=== PATIENT | female | born 1965 | race Caucasian/White ===

== ENCOUNTER 2018-01-23 10:39 | Emergency (ER) | payer OTHER ==
[~2018-01-23] VITALS: Ht 154.9 cm; Wt 74.8 kg
[2018-01-23] MEDS ORDERED: SYNTHROID100 MC1 PO (11:00)
[2018-01-23] MEDS ORDERED: LIPITOR 20 MG T20 M1 PO (11:00)
[2018-01-23] MEDS ORDERED: NOVOLOG100 UNIT/1 SUBQ (11:00)
[2018-01-23] MEDS ORDERED: HYDROCODONE-AP1 EAC6 PO (11:04)
[2018-01-23] MEDS ORDERED: IBUPROFEN 800800 M1 PO (11:04)
[2018-01-23 11:15] VITALS: BP 143/74
== END 2018-01-23 11:16 | disposition home or self-care (01) ==
LOC: M.ERS 10:39
DX: M79.601 Pain in right arm (principal); E11.9 Type 2 diabetes mellitus without complications; E03.9 Hypothyroidism, unspecified